=== PATIENT | female | born 1950 | race Caucasian/White ===

== ENCOUNTER 2022-01-17 10:13 | Outpatient (CLI) | payer MEDICARE, BC ==
[2022-01-17 10:53] LABS: #Basophils 0.1 10x3/uL (0.0-0.2); #Eosinphils 0.4 10x3/uL (0.0-0.5); #Monocytes 0.7 10x3/uL (0.0-1.1); #Neutrophils 4.8 10x3/uL (1.5-8.4); %Basophils 0.7 % (0.0-2.0); %Eosinophils 4.4 % (0.0-6.0); %Lymphocytes 26.3 % (18.0-47.0); %Monocytes 8.6 % (0.0-10.0); %Neutrophils 59.6 % (40.0-75.0); Hemoglobin 14.1 g/dL (12.0-15.5); Mean Corpuscular HGB CONC 33.3 g/dL (32.0-36.0); Mean Corpuscular Hemoglobin 29.2 pg (27.0-33.0); Mean Corpuscular Volume 87.6 fl (81.6-98.3); Platelet Count 252 10x3/uL (150-450); RBC Distribution Width 14.1 % (11.5-14.5); Red Blood Cell (RBC) Count 4.83 10x6/uL (3.90-5.03); White Blood Cell (WBC) Count 8.1 10x3/uL (3.5-10.5)
[2022-01-17 11:09] LABS: ALT (SGPT) 19 U/L (8-55); AST (SGOT) 20 U/L (5-34); Albumin 4.5 g/dL (3.4-4.8); Alkaline Phosphatase 70 U/L (40-110); Anion Gap 15 mmol/L (10-20); BUN (Urea Nitrogen) 20 mg/dL (9.8-20.1); Bilirubin, Total 0.4 mg/dL (0.2-1.2); Calc. Creatinine Clearance 0 mL/min (70-130); Calcium 9.7 mg/dL (7.8-10.44); Carbon Dioxide 26 mmol/L (23-31); Chloride 105 mmol/L (98-107); Globulin 2.1 g/dL (2.4-3.5); Glucose 85 mg/dL (83-110); Potassium 4.3 mmol/L (3.5-5.1); Protein, Total 6.6 g/dL (5.8-8.1); Sodium 142 mmol/L (136-145)
== END 2022-01-17 10:14 | disposition home or self-care (01) ==
LOC: LABBT 10:13
PROVIDERS: ATTEND Surgery
DX: Z01.818 Encounter for other preprocedural examination (principal); K42.9 Umbilical hernia without obstruction or gangrene; Z20.822 Contact with and (suspected) exposure to COVID-19
CPT/HCPCS: 80053; 85025; 93005; U0003; U0005; 93010

== ENCOUNTER 2022-01-22 06:51 | Day surgery (SDC) | payer MEDICARE, BC ==
[2022-01-17 13:39] VITALS: BMI 22.9
[2022-01-22] MEDS ORDERED: Bupivacaine 0.25% HCL 30 ML VIAL ONE (06:56)
[2022-01-22] MEDS ORDERED: Lidocaine 1% w/Epinephrine 1:100K 20 ML VIAL ONE (06:56)
[2022-01-22] MEDS ORDERED: fentaNYL Citrate/PF 100 MCG/2 ML SYRINGE ONE (08:19)
[2022-01-22] MEDS ORDERED: Bupivacaine PF 0.5% 30 ML VIAL ONE (08:52)
[2022-01-22] MEDS ORDERED: Levofloxacin 500 mg/D5W 100 ml Premix Bag ONE (09:08)
== END 2022-01-22 12:26 | disposition home or self-care (01) ==
LOC: SDC 06:51
PROVIDERS: ATTEND Surgery
PROC: 0WQF0ZZ Repair Abdominal Wall, Open Approach (ICD-10-PCS; principal; 2022-01-22)
DX: K42.9 Umbilical hernia without obstruction or gangrene (principal); E78.00 Pure hypercholesterolemia, unspecified; M19.90 Unspecified osteoarthritis, unspecified site; E78.5 Hyperlipidemia, unspecified; N28.1 Cyst of kidney, acquired; Z88.0 Allergy status to penicillin; Z88.1 Allergy status to other antibiotic agents
CPT/HCPCS: J1956; S0020